=== PATIENT | male | born 2000 | race Caucasian/White ===

== ENCOUNTER 2019-05-09 07:42 | Outpatient (CLI) | payer OTHER ==
--- NOTE | 2019-05-09 09:40 | MRI ---
MR OF THE LEFT KNEE WITHOUT CONTRAST INDICATION: Strain of the patellar tendon TECHNIQUE: Axial and coronal PD fat sat, sagittal T2 fat sat, sagittal PD turbo spin echo and T1 phan nal images were obtained of the left knee. COMPARISON: Left knee radiograph dated April 03, 2019 FINDINGS: Joint effusion: None. Semimembranosus-medial gastrocnemius popliteal cyst: There is a tiny semimembranosus-medial gastrocne mius popliteal cyst Ligaments: The ACL, PCL, MCL and LCLC are intact. Extensor mechanism: There is mild increased T2 signal involving the proximal patellar tendon best see n on image 31 of series 3 and image 24 series 7 Menisci: Intact. Articular cartilage: Intact. Osseous structures: Normal marrow signal. Popliteus and IT band: Normal. IMPRESSION: 1. Mild proximal patellar tendinitis
== END 2019-05-09 07:43 | disposition home or self-care (01) ==
LOC: SCSMRI 07:42
PROVIDERS: ATTEND Family Medicine
DX: S86.812D Strain of other muscle(s) and tendon(s) at lower leg level, left leg, subsequent encounter (principal); M76.52 Patellar tendinitis, left knee